=== PATIENT | male | born 1985 | race Asian ===

== ENCOUNTER 2020-09-23 10:39 | Emergency (ER) | payer OTHER ==
[~2020-09-23] VITALS: Ht 165.1 cm; Wt 73.5 kg
--- NOTE | 2020-09-23 10:49 | NUR ---
TO ER BED 1, C/O SUDDEN ONSET L FLANK PAIN, HX OF KIDNEY STONE, SALINE LOCK ESTABLISHED, BLOOD DRAWN, AT BEDSIDE
[2020-09-23] MEDS ORDERED: ONDANSETRON HCL/PF 4 MG/2 ML VIAL ONE (10:52)
[2020-09-23] MEDS ORDERED: MORPHINE SULFATE INJ 4 MG/ML DISP.SYRIN ONE (10:52)
[2020-09-23] MEDS ORDERED: KETOROLAC TROMETHAMINE 15 MG/ML VIAL ONE (10:52)
[2020-09-23] MEDS ORDERED: MORPHINE SULFATE INJ 2 MG/ML DISP.SYRIN IV ONE (11:00)
[2020-09-23] MEDS ORDERED: IV NS 0.9% 1,000 ML BAG IV ONE (11:00)
[2020-09-23] MEDS ORDERED: KETOROLAC TROMETHAMINE INJ 30 MG/ML VIAL IV ONE (11:00)
[2020-09-23] MEDS ORDERED: ONDANSETRON HCL/PF 4 MG/2 ML VIAL IVP ONE (11:00)
--- NOTE | 2020-09-23 11:06 | NUR ---
URINE COLLECTED AND SENT TO LAB
[2020-09-23 11:25] LABS: BASOPHILS % (AUTO) 0.4 % (0.0-2.0); BILIRUBIN,URINE SMALL (NEGATIVE); COLOR,URINE AMBER (YELLOW); EOSINOPHILS % (AUTO) 0.2 % (0.0-6.0); HEMATOCRIT 42 % (39-51); HEMOGLOBIN 14.3 g/dL (13.5-17.5); LEUKOCYTE ESTERASE ,URINE NEGATIVE (NEGATIVE); LYMPHOCYTES # (AUTO) 1.2 K/uL (0.8-4.8); LYMPHOCYTES % (AUTO) 11.2 % (20.0-44.0); MEAN CORPUSCULAR HGB CONC 34 g/dl (31.0-36.0); MEAN CORPUSCULAR VOLUME 89 fL (80-96); MONOCYTES # (AUTO) 0.5 K/uL (0.1-1.30); MONOCYTES % (AUTO) 4.1 % (2.0-12.0); NEUTROPHILS # (AUTO) 9.4 K/uL (1.8-8.9); NEUTROPHILS % (AUTO) 84.1 % (43.0-81.0); NITRITE, URINE NEGATIVE (NEGATIVE); PLATELET COUNT (AUTO) 269 K/uL (150-450); PROTEIN,URINE 100 mg/dl (NEGATIVE); RED BLOOD CELL COUNT(AUTO) 4.73 MIL/uL (4.5-6.0); UGLUCOSE NEGATIVE (NEGATIVE); WHITE BLOOD COUNT (AUTO) 11.1 K/uL (4.3-11.0)
[2020-09-23 11:37] LABS: CALCIUM, SERUM 8.5 mg/dL (8.5-10.1); CREATININE 1.2 mg/dL (0.6-1.3)
[2020-09-23 11:42] LABS: RBC,URINE TOO NUMEROUS TO COUN /HPF (0-2)
[2020-09-23 11:44] LABS: BACTERIA,URINE None seen /HPF (None Seen); SQUAMOUS EPITHELIAL CELL,UR None Seen /HPF (None Seen)
[2020-09-23 11:45] LABS: URINE AMORPHOUS URATE Many /HPF (None Seen)
[2020-09-23 11:49] VITALS: BP 112/70
[2020-09-23] MEDS ORDERED: IBUP-1953 PO (12:03)
[2020-09-23] MEDS ORDERED: HYDR-4275 PO (12:03)
[2020-09-23] MEDS ORDERED: ONDA4TAB5 PO (12:03)
== END 2020-09-23 12:12 | disposition home or self-care (01) ==
LOC: ER 10:39
DX: R10.32 Left lower quadrant pain (principal); R10.12 Left upper quadrant pain; R11.2 Nausea with vomiting, unspecified; Z87.442 Personal history of urinary calculi
CPT/HCPCS: 36415; 80048; 81001; 85025; 87086; 96361; 96374; 96375; 99284; J1885; J2270; J2405; J7030